=== PATIENT | male | born 1995 | race Hispanic/Latino ===

== ENCOUNTER 2024-02-18 20:06 | Emergency (ER) | payer SELFPAY ==
--- NOTE | ~2024-02-18 | XR_ITS ---
EXAM: XR forearm LT 2V DATE: 02/18/2024 20:39 HISTORY: fall/injury . COMPARISON: None available. FINDINGS: Normal mineralization. Transverse fracture of the left radius at the junction of the proxi mal and distal thirds, with one shaft width medial and posterior displacement. Possible nondisplaced coronoid process fracture. Suggestion of mild widening at the radial capitular articulation. Old ulna r styloid fracture. No lytic or blastic lesion. Joint spaces are maintained. No erosion or periosteal change. Soft tissue swelling about the radial fracture site. IMPRESSION: Transverse, displaced proximal radial fracture. Possible nondisplaced coronoid process fr acture. Possible radial head subluxation. Reviewed, dictated and finalized at location [facility]. L ENGINEER IMPRESSION: Transverse, displaced proximal radial fracture. Possible nondisplac ed coronoid process fracture. Possible radial head subluxation.
[2024-02-18 20:11] VITALS: BP 126/94; PULSE 94; RESP 20; TEMP 36.5; O2SAT 100
--- NOTE | 2024-02-18 21:46 | ED.FALL ---
HPI - Fall General Chief Complaint: Fall Stated Complaint: fall Time Seen by Provider: 02/18/24 21:26 History of Present Illness HPI Narrative: 30-year-old [place]occan-speaking male presents to the ED with friend at bedside for left arm pain and injury that occurred 30 minutes prior to arrival. Patient states he was 2 steps up a ladder when he was holding something, lost his balance and fell to the ground. States he landed on his left arm. He did not hit his head or lose consciousness. He is reporting pain between the elbow and wrist of the left forearm. He has not taken anything for pain. No prior medical history. Related Data Allergies Allergy/AdvReac Type Severity Reaction Status Date / Time No Known Allergies Allergy Verified 02/18/24 21:56 Review of Systems Review of Systems: All systems reviewed & are unremarkable except as noted in HPI and below Exam Narrative: GENERAL: Well-appearing, well-nourished, and in no acute distress. HEAD: Normocephalic, atraumatic. EYES: PERRLA and EOMI. ENT: Nares clear, no rhinorrhea or epistaxis. Mucous membranes moist. NECK: No midline cervical spinous tenderness, step-offs or deformities BACK: no midline thoracolumbar spinous tenderness, step-offs or deformities CHEST: Clear to auscultation. No respiratory distress. HEART: Regular rate and rhythm. No murmur heard. Normal peripheral pulses. ABDOMEN: Soft, nontender, nondistended, normal active bowel sounds. EXTREMITIES: LUE: tenderness diffusely throughout the forearm with obvious deformity to the mid forearm, compartments are soft, no overlying ecchymosis. No tenderness humerus, shoulder, carpal or metacarpals, fingers. Radial pulse 2 +. Sensation intact throughout. Patient able to wiggle fingers but has limited range of motion of elbow and wrist secondary to pain. SKIN: Warm, dry, no rash. NEURO: No focal deficits. Alert and oriented x3 Course Vital Signs Vital signs: Vital Signs Temperature 97.7 F 02/18/24 20:11 Pulse Rate 94 02/18/24 20:11 Respiratory Rate 20 02/18/24 20:11 Blood Pressure 126/94 H 02/18/24 20:11 Pulse Oximetry 100 02/18/24 20:11 Oxygen Delivery Room Air 02/18/24 20:11 Temperature 97.7 F 02/18/24 20:11 Pulse Rate 86 02/18/24 22:27 Respiratory Rate 16 02/18/24 22:27 Blood Pressure 122/81 02/18/24 22:27 Pulse Oximetry 95 02/18/24 22:27 Oxygen Delivery Room Air 02/18/24 20:11 MDM - Fall MDM Narrative Medical decision making narrative: 30-year-old male with no past medical history presents to the ED for left arm pain after he fell 2 steps off of the ladder prior to arrival. He did not his head or lose consciousness. landed on his left arm. Vitals are stable. Exam is significant for the above. He is neurovascularly intact. There is obvious deformity to the left forearm. Compartments are soft. X-ray shows a transverse, displaced proximal radial fracture. Possible nondisplaced coronoid process fracture. Possible radial head subluxation. Patient updated on workup. Discussed the case with orthopedist, Dr. Garcia, who advises transfer to tertiary care facility. Patient placed in a sugar-tong splint for comfort and provided IM dilaudid. Patient remains neurovascularly intact after splint placement. Discussed with [facility] orthopedist, Dr. Lopez, who agreed for transfer and advises ED to ED. Discussed with ED physician, Dr. Hernandez, who agrees for transfer. Patient requesting to go POV. He left this emergency department in stable condition. Discharge Plan Discharge Clinical Impression: Fracture of proximal end of radius Patient Disposition: Acute Care Hospital Condition: Stable Follow-up/Referrals: Dieter,MD Maurice [Primary Care Provider] -
[2024-02-18] MEDS: HYDROmorphone HCL INJ (*CRX) 1 MG/ML SYR IM (21:57)
[2024-02-18 22:27] VITALS: BP 122/81; PULSE 86; RESP 16; O2SAT 95
== END 2024-02-18 23:06 | disposition short-term general hospital (02) ==
PROVIDERS: Emergency Provider Physician Assistant; PCP Internal Medicine
DX: S52.102A Unspecified fracture of upper end of left radius, initial encounter for closed fracture (principal); W11.XXXA Fall on and from ladder, initial encounter
CPT/HCPCS: 29125; 73090; 99284; A4565; J1171